=== PATIENT | male | born 1935 | race Caucasian/White ===

== ENCOUNTER → 2016-11-17 | Day surgery (SDC) | payer OTHER ==
--- NOTE | 2016-11-16 10:29 | MH ---
cc: MICHAEL FRIED M.D. DATE OF ADMISSION: 11/17/2016 HISTORY OF PRESENT ILLNESS This patient was sent to ENT with a previous history of lung cancer, pulmonary nodule. He had a PET scan completed. The scan did suggest new focal hypermetabolism in the thyroid area and this has been addressed separately. We were asked to evaluate hypermetabolism at the posterior tongue with an SUV of 5.4 thought to be physiologic but possibly a malignancy. The patient presented for evaluation. He does have a small nodule at the base of tongue region and is brought to the operating room for microlaryngoscopy and biopsy. ALLERGIES No drug allergies. MEDICATIONS Omeprazole. PHYSICAL EXAMINATION GENERAL: This is a well-developed, well-nourished male in no apparent distress. HEENT: Normocephalic, atraumatic. Extraocular motions intact. External ear canals clear. Lips, oral mucosa and oropharynx show no lesion. Palpation of the base of tongue shows a small nodule just to the left off of midline, mildly firm and less and a centimeter. NECK: No masses. CHEST: Clear to auscultation. HEART: Regular rate. ABDOMEN: Soft. EXTREMITIES: No lesion. NEUROLOGIC: Nonfocal. ASSESSMENT The patient has hoarseness with no laryngeal lesion or age-related. There is a possible base of tongue lesion. This may be more physiologic, was concerning for malignancy, but he will undergo microlaryngoscopy and biopsy due to the abnormal PET scan. The risks and benefits were discussed with the patient. The risks include but are not limited to anesthesia, bleeding, unfavorable scarring, hematoma, abscess, infection, airway obstruction, bleeding, dysphagia, odynophagia, hoarseness, airway obstruction. The patient states he understands and accepts the risks of the procedure. MD DAVION Rao/JUAN PABLO /10:07 AM /10:29 AM
[~2016-11-17] VITALS: Ht 172.7 cm; Wt 64.0 kg
[~2016-11-17] MED LIST: CALCCHW9 CHEW; CHLORHEXIDINE GLUCONATE 2 % 1 PACK (2 CLOTHS) TOPICAL PRN; DULC100C PO; ENAL5TAB PO; HYDR200T3 PO; INSULIN HUMAN REGULAR 1,000 UNITS/10 ML VIAL SQ PRN; LACTATED RINGER'S 1000 ML IV PRN; METOPROLOL TARTRATE 25 MG TAB PO PRN; OMEP40CA2 PO; ONDANSETRON HCL 4 MG/2 ML VIAL IV PUSH ONE; POVIDONE IODINE 5% (ANTISEPSIS KIT) 4 APPLICATIONS EACH NARE PRN; PROPOFOL 200 MG/20 ML AMP IV ONE; SODIUM CHLORID 0.9% 500 ML IV PRN; SUCR1TAB PO; TRAM50TA PO; ZOCO20TA PO; ePHEDrine/NS 25 MG/5 ML SYR IV ONE
[2016-11-17 08:00] VITALS: BP 114/68; PULSE 57; RESP 16; TEMP 97.7; O2SAT 100
[2016-11-17 08:00] LABS: AUTOMATED NEUTROPHIL # 7.1 TH/MM3 (1.8-7.7); BASOPHIL # 0.1 TH/MM3 (0-0.2); BASOPHIL % 0.9 % (0.0-2.0); EOSINOPHIL # 2.9 TH/MM3 (0-0.4); EOSINOPHIL % 20.7 % (0.0-4.0); HEMATOCRIT 39.7 % (39.0-51.0); HEMO FLAGS DIFF FINAL; LYMPH % 19.2 % (9.0-44.0); LYMPHOCYTE # 2.7 TH/MM3 (1.0-4.8); MEAN CELL VOLUME 83.2 FL (80.0-100.0); MEAN CORPUSCULAR HEMOGLOBIN 27.3 PG (27.0-34.0); MEAN CORPUSCULAR HGB CONC 32.8 % (32.0-36.0); NEUT % 51.2 % (16.0-70.0); PLATELET COUNT 198 TH/MM3 (150-450); RED BLOOD COUNT 4.77 MIL/MM3 (4.50-5.90); RED CELL DISTRIBUTION WIDTH 15.8 % (11.6-17.2); WHITE BLOOD COUNT 13.9 TH/MM3 (4.0-11.0)
--- NOTE | 2016-11-17 08:29 | MP ---
cc: MICHAEL FRIED DATE OF SURGERY 11/17/2016 DATE OF 1935 INDICATIONS This is an 81-year-old man who underwent a PET scan for evaluation with a previous concern of malignancy. He had a positive finding at the base of tongue area. It was relatively low more consistent with an inflammatory lesion. In the office, he did show an area at the base of tongue just to the left of the midline slightly firm possible concern for early malignancy. He was brought to the operating room for microlaryngoscopy and biopsy. PREOPERATIVE DIAGNOSIS Hoarseness, base tongue lesion. POSTOPERATIVE DIAGNOSIS Hoarseness, base tongue lesion. PROCEDURE Microlaryngoscopy with biopsy SUMMARY The patient brought to the operating room, placed in the supine position, successfully placed under general anesthesia and prepared in the usual fashion for the procedure. Exam under magnification, the area was palpated. There was a firm area, about 1 cm, just of midline, above the vallecula at the tongue base. The lesion at the base of tongue was biopsied. He tolerated the procedure well. He was awakened and taken to recovery in stable condition. MD DAVION Rao/DAXA /8:05 AM /8:21 AM [email or web address]
--- NOTE | 2016-11-17 10:20 | EKG ---
Date Performed: 11/17/2016 Time Performed: 07:35:42 PTAGE: 81 years EKG: SINUS BRADYCARDIA BORDERLINE ECG NO PREVIOUS TRACING DOCTOR: Moncho Hamilton Interpretating Date/Time 11/17/2016 10:17:25
[2016-11-17 11:09] VITALS: BP 98/64; PULSE 60; RESP 16; TEMP 97.9; O2SAT 100
== END | disposition home or self-care (01) ==
LOC: HSDC 07:04
PROVIDERS: ATTEND Specialist
DX: K14.8 Other diseases of tongue (principal); R49.0 Dysphonia; E78.5 Hyperlipidemia, unspecified; F17.200 Nicotine dependence, unspecified, uncomplicated; K21.9 Gastro-esophageal reflux disease without esophagitis; I12.9 Hypertensive chronic kidney disease with stage 1 through stage 4 chronic kidney disease, or unspecified chronic kidney disease; N18.9 Chronic kidney disease, unspecified; B19.20 Unspecified viral hepatitis C without hepatic coma; Z85.118 Personal history of other malignant neoplasm of bronchus and lung
CPT/HCPCS: 31536; 85025; 88305; 88341; 88342; 93005; J2405; J3010; J7120